=== PATIENT | female | born 1950 | race Caucasian/White ===

== ENCOUNTER 2022-03-03 12:14 | Emergency (ER) | payer MEDICARE, OTHER ==
[2022-03-03 12:49] LABS: BASOPHILS % (AUTO) 0.4 %; EOSINOPHILS # (AUTO) 0.1 10^3/uL (0.0-0.7); EOSINOPHILS % (AUTO) 2.5 %; HGB - HEMOGLOBIN 13.8 g/dL (12.0-16.0); LYMPHOCYTES % (AUTO) 34.9 %; MEAN CORPUSCULAR HEMOGLOBIN 31.7 pg (27.0-31.0); MEAN CORPUSCULAR HGB CONC 34.5 g/dL (32.0-36.0); MEAN CORPUSCULAR VOLUME 91.7 fL (81.0-99.0); MEAN PLATELET VOLUME 9.1 fL (7.9-10.8); MONOCYTES # (AUTO) 0.4 10^3/uL (0.0-1.0); MONOCYTES % (AUTO) 6.6 %; NEUTROPHILS # (AUTO) 3.1 10^3/uL (1.5-6.6); NEUTROPHILS % (AUTO) 55.4 %; PLT - PLATELET COUNT 158 10^3/uL (130-450); RED BLOOD COUNT 4.36 10^6/uL (4.20-5.40); RED CELL DISTRIBUTION WIDTH 11.9 % (12.0-15.0); WHITE BLOOD COUNT 5.6 x10^3/uL (4.8-10.8)
[2022-03-03 13:02] LABS: ALBUMIN 4.5 g/dL (3.2-5.5); ALBUMIN/GLOBULIN RATIO 1.7 (1.0-2.2); BILIRUBIN,TOTAL 0.6 mg/dL (0.2-1.0); CALCIUM 9.7 mg/dL (8.5-10.3); CREATININE 0.7 mg/dL (0.4-1.0); TOTAL PROTEIN 7.2 g/dL (6.7-8.2)
--- NOTE | 2022-03-03 13:23 | XRAY Report ---
PROCEDURE: Chest 1 View X-Ray INDICATIONS: Chest pain TECHNIQUE: One view of the chest was acquired. COMPARISON: None FINDINGS: Surgical changes and devices: None. Lungs and pleura: No pleural effusions or pneumothorax. Lungs are clear. Mediastinum: Mediastinal contours appear normal. Heart size is normal. Bones and chest wall: No suspicious bony lesions. Overlying soft tissues appear unremarkable. IMPRESSION: Chest without acute cardiopulmonary abnormalities or focal airspace disease. Reviewed by: Delmar Young MD on 03/03/2022 1:22 PM PDT Approved by: Delmar Young MD on 03/03/2022 1:22 PM PDT Station ID: [id number]
--- NOTE | 2022-03-03 15:00 | ED Physician Documentation ---
History of Present Illness - Stated complaint Stated Complaint: CHEST PX R SIDE - Chief complaint Chief Complaint: Cardiac - Additonal information Additional information: 71-year-old female presents emergency department for evaluation of right upper chest and shoulder pain that began about 9 AM. She reports that she woke up with the pain. She finds it when she moves her shoulder or takes a very deep breath or even presses on her chest it is worse. She denies that the chest pain is exertional. There is no dyspnea. No history of DVT or cancer. No history hemoptysis. No history of hypertension or tobacco use. She takes no prescribed medications and describes herself as a very healthy. In fact she plays [employer] about 4 times a week. Review of Systems Constitutional: denies: Fever, Chills Eyes: reports: Reviewed and negative Ears: reports: Reviewed and negative Nose: reports: Reviewed and negative Throat: reports: Reviewed and negative Cardiac: reports: Chest pain / pressure. denies: Palpitations, Pedal edema, Calf pain Respiratory: reports: Reviewed and negative GI: reports: Reviewed and negative : reports: Reviewed and negative Skin: reports: Reviewed and negative Musculoskeletal: reports: Reviewed and negative PD PAST MEDICAL HISTORY - Allergies Allergies/Adverse Reactions: Allergies Allergy/AdvReac Type Severity Reaction Status Date / Time codeine Allergy Hives Verified 03/03/22 12:35 PD ED PE NORMAL - General General: Alert and oriented X 3, No acute distress, Well developed/nourished - HEENT HEENT: Atraumatic, Moist mucous membranes, Pharynx benign - Neck Neck: Supple, no meningeal sign, No adenopathy, No JVD - Cardiac Cardiac: RRR, No murmur, No gallop, Strong equal pulses, Other (Reproducible chest pain with palpation of the upper anterior chest and movement of the shoulder.) - Respiratory Respiratory: No respiratory distress, Clear bilaterally - Abdomen Abdomen: Normal bowel sounds, Soft - Back Back: No CVA TTP, No spinal TTP - Derm Derm: Normal color, Warm and dry, No rash - Extremities Extremities: No deformity - Neuro Neuro: Alert and oriented X 3 Eye Opening: Spontaneous Motor: Obeys Commands Verbal: Oriented GCS Score: 15 - Psych Psych: Normal mood Results - Vitals Vitals: Vital Signs - 24 hr 03/03/22 12:30 Temperature 36.7 C Heart Rate 67 Respiratory 16 Rate Blood Pressure 137/55 H O2 Saturation 99 Oxygen O2 Source Room air - EKG (time done) 1230 Rate: Rate (enter#) (61) Rhythm: NSR [place]: Normal Intervals: Normal [place] QRS: Normal Ischemia: Non specific changes Compare to prior EKG: Old EKG unavailable Computer interpretation: Agree with computer - Labs Labs: Laboratory Tests 03/03/22 03/03/22 03/03/22 12:46 12:46 12:46 WBC 5.6 RBC 4.36 Hgb 13.8 Hct 40.0 MCV 91.7 MCH 31.7 H MCHC 34.5 RDW 11.9 L Plt Count 158 MPV 9.1 Neut # (Auto) 3.1 Lymph # (Auto) 2.0 [place] # (Auto) 0.4 Eos # (Auto) 0.1 Baso # (Auto) 0.0 Absolute Nucleated RBC 0.00 Nucleated RBC % 0.0 Sodium 141 Potassium 4.0 Chloride 103 Carbon Dioxide 30 Anion Gap 8.0 BUN 19 Creatinine 0.7 Estimated GFR (MDRD) 82 L Glucose 101 H Calcium 9.7 Total Bilirubin 0.6 AST 25 ALT 35 Alkaline Phosphatase 89 Troponin I High Sens 3.3 Total Protein 7.2 Albumin 4.5 Globulin 2.7 Albumin/Globulin Ratio 1.7 Lipase 36 - Rads (name of study) cxr Radiology: Final report received (No acute cardiopulmonary process) PD MEDICAL DECISION MAKING - ED course Complexity details: reviewed results, considered differential, d/w patient ED course: Well-appearing 71-year-old female presents emergency department for evaluation of right upper chest pain that she noticed this morning about 9 AM. It is reproducible on exam and with movement of the shoulder. By Wells criteria she is considered low risk and negative for PE thus a D-dimer and advanced imaging such as CT pulmonary angio was deferred. Her screening labs and x-ray as well as EKG are nonrevealing. We discussed that if her symptoms do not markedly improve, she develops shortness of air dyspnea or hemoptysis she will return immediately to the ER for repeat evaluation. Departure - Departure Disposition: 01 Home, Self Care Clinical Impression: Chest pain Qualifiers: Chest pain type: unspecified Qualified Code(s): R07.9 - Chest pain, unspecified Condition: Stable Record reviewed to determine appropriate education?: Yes Comments: You are seen today in the emergency department for pain in the right upper portion of your chest that is worse when you press on your chest, or move your shoulder. Your chest x-ray is normal. Your screening EKG and labs are all also essentially normal. As we discussed at the bedside you are very low risk to have a pulmonary embolus therefore will defer other testing and imaging today. I suspect that you may have some mildly inflamed muscles in your shoulder and chest. I do recommend they take 500 mg of Tylenol or 4 to 600 mg of ibuprofen with food 2-3 times a day. Please discuss this ED visit with your primary care doctor. If your symptoms or not markedly improving, you have worsening symptoms, develop shortness of air with exertion, then please return immediately to the ER for second evaluation.
[2022-03-03 15:11] VITALS: BP 132/58
== END 2022-03-03 15:11 | disposition home or self-care (01) ==
LOC: ED 12:14
DX: R07.9 Chest pain, unspecified (principal)
CPT/HCPCS: 36415; 80053; 83690; 84484; 85025; 93005; 99283; 99284

== ENCOUNTER 2024-04-20 11:55 | Outpatient (CLI) | payer MEDICARE ==
--- NOTE | 2024-04-20 16:53 | Ultrasound Report ---
PROCEDURE: Duplex Ext Veins Right INDICATIONS: R KNEE PAIN TECHNIQUE: Real-time imaging, as well as color and pulse Doppler interrogation, were performed of the lower extr emity deep veins from the inguinal ligament to the popliteal fossa. Attempted visualization of the ca lf veins was performed. COMPARISON: None. FINDINGS: The deep veins are normally compressible, and free of intraluminal thrombus. Color and pu lse Doppler demonstrate normal phasic intraluminal flow. There is normal augmentation response to di stal compression maneuver. IMPRESSION: No deep venous thrombosis of the visualized lower extremity. Reviewed by: Edyta Michele MD on 04/20/2024 4:52 PM PDT Approved by: Edyta Micheel MD on 04/20/2024 4:52 PM PDT Station ID: [id number]
== END 2024-04-20 11:56 | disposition home or self-care (01) ==
LOC: DI 11:55
PROVIDERS: ATTEND Physician Assistant Medical
DX: M25.561 Pain in right knee (principal)